=== PATIENT | male | born 1990 | race Two or more races ===

== ENCOUNTER → 2018-09-27 | Emergency (ER) | payer MEDICAID | END | disposition left against medical advice (07) | LOC: ER 23:10 | DX: T14.8XXA Other injury of unspecified body region, initial encounter (principal); W54.0XXA Bitten by dog, initial encounter; Y93.9 Activity, unspecified; Y92.9 Unspecified place or not applicable; Y99.9 Unspecified external cause status; Z53.21 Procedure and treatment not carried out due to patient leaving prior to being seen by health care provider ==